=== PATIENT | female | born 2000 | race Caucasian/White ===

== ENCOUNTER 2021-03-26 17:46 | Emergency (ER) | payer OTHER, SELFPAY ==
[2021-03-26 18:08] VITALS: BP 129/87; PULSE 110; RESP 16; TEMP 37; O2SAT 100
[2021-03-26 18:31] LABS: Add Urine Microscopic? YES; Appearance Urine Clear (Clear); Bilirubin Urine Negative (Negative); Blood Urine 2+ (Negative); Color Urine Light Yellow (Yellow); Glucose Urine UA Negative (Negative); Ketones Urine Negative (Negative); Leukocyte Esterase Ur 1+ (Negative); Nitrate Urine Negative (Negative); Protein Urine 2+ (Negative); pH Urine 6.5 (5.0-8.0)
[2021-03-26 18:37] LABS: Bacteria Urine 1+ /hpf; Mucus Urine Few /lpf; RBC Urine 21-50 /hpf (0-2); Squamous Epithelial Cell Urine Rare /hpf (Few); WBC Urine 21-30 /hpf (0-3)
--- NOTE | 2021-03-26 18:41 | ED.FEMALEGU ---
HPI - Female Genitourinary General Chief complaint: Urogenital-Female Stated complaint: pelvic pressure Source: patient Mode of arrival: ambulatory Limitations: no limitations History of Present Illness HPI Narrative: This is a 20-year-old female that presents with some suprapubic fullness with some frequency and hesitancy with some some flank discomfort with no fever chills no nausea vomiting no diarrhea MD elicited complaint: dysuria Severity: mild Severity scale (1-10): 2 Urinary symptoms: Dysuria and Urgency Exacerbating factors: none Relieving factors: none Related Data Home Medications Medication Instructions Recorded Confirmed norelgestromin-ethin.estradiol 1 patch TOPICAL WEEKLY 03/26/21 03/26/21 [Xulane] Allergies Allergy/AdvReac Type Severity Reaction Status Date / Time No Known Allergies Allergy Verified 03/26/21 18:14 Review of Systems Review of Systems: All systems reviewed & are unremarkable except as noted in HPI and below PMFSH Past Medical History Medical History Patient denies medical problems Exam Const: General: no acute distress and alert Orientation/consciousness: patient oriented x3 HENMT: Head: normal to inspection Eyes: Conjunctivae: conjunctivae normal Pupils: Equal, round and reactive pupils present EOM: EOMs intact bilaterally Direct Ophthalmoscopy: no photophobia Neck: Neck: normal visual inspection, no lymphadenopathy and no meningeal signs Chest: Chest palpation & inspection: normal inspection of the chest Resp: Effort & Inspection: normal respiratory effort Auscultation: clear to auscultation bilaterally Cardio: Rate: regular rate Rhythm: regular rhythm GI: GI Palp: Yes Soft to palpation Percussion: Yes normal to percussion Neuro: General: patient oriented x3 Extrem: General: normal to inspection and no pedal edema Psych: Mental Status: mental status grossly normal Course Course Emergency Course: patient has a urinary tract infection will give a dose of Macrobid and is to follow-up with primary care physician if symptoms persist or worsen. Vital Signs Vital signs: Vital Signs Temperature 37.0 C 03/26/21 18:08 Pulse Rate 110 H 03/26/21 18:08 Respiratory Rate 16 03/26/21 18:08 Blood Pressure 129/87 03/26/21 18:08 Pulse Oximetry 100 03/26/21 18:08 Temperature 37.0 C 03/26/21 18:08 Pulse Rate 110 H 03/26/21 18:08 Respiratory Rate 16 03/26/21 18:08 Blood Pressure 129/87 03/26/21 18:08 Pulse Oximetry 100 03/26/21 18:08 MDM - Female Genitourinary Lab Data Labs: Lab Results 03/26/21 Range/Units 18:29 Urine Color Light yellow (Yellow) Urine Appearance Clear (Clear) Urine pH 6.5 (5.0-8.0) Ur Specific [place] 1.020 (1.010-1.020) Urine Protein 2+ H (Negative) Urine Glucose (UA) Negative (Negative) Urine Ketones Negative (Negative) Ur Blood (Man) 2+ H (Negative) Urine Nitrate Negative (Negative) Urine Bilirubin Negative (Negative) Urine Urobilinogen 4.0 H (0.2-1.0) mg/dL Ur Leukocyte Esterase 1+ H (Negative) Urine RBC 21-50 H (0-2) /hpf Urine WBC 21-30 H (0-3) /hpf Ur Squamous Epith Cells Rare (Few) /hpf Urine Bacteria 1+ H (None) /hpf Urine Mucus Few H /lpf Critical Care Time Critical Care Time Critical Care Time: No Discharge Plan Discharge Clinical Impression: Urinary tract infection Qualifiers: Urinary tract infection type: acute cystitis Hematuria presence: without hematuria Qualified Code(s): N30.00 - Acute cystitis without hematuria Patient Disposition: Home, Self-Care Condition: Stable Instructions: Antibiotic Form, Urinary Tract Infection in Women (ED) Additional Instructions: Take medicine as prescribed and follow-up with primary care physician. Prescriptions: New nitrofurantoin monohyd/m-cryst [Macrobid] 100 mg capsule 100 mg PO Q12H 7 Days Qt
[2021-03-26] MEDS: NITROFURANTOIN MONOHYD MACROCR 100 MG CAP PO (18:49)
== END 2021-03-26 18:58 | disposition home or self-care (01) ==
PROVIDERS: Emergency Provider Emergency Medicine; PCP Physician Assistant
DX: N30.00 Acute cystitis without hematuria (principal)
CPT/HCPCS: 81001; 99283; A9270

== ENCOUNTER 2021-03-28 22:28 | Emergency (ER) | payer OTHER, SELFPAY ==
--- NOTE | 2021-03-28 23:16 | ED.BACK ---
HPI - Back Pain/Injury General Stated Complaint: back pain Source: patient Mode of arrival: ambulatory Limitations: no limitations History of Present Illness HPI Narrative: this is a 20-year-old female that presents with right lower back pain radiating down her right leg pain listed with movement of her right leg and moved of her back it is at the L4 right paravertebral area and tender with palpation with no numbness or tingling no known injury. Patient does state that she has had new job that has her doing some lifting. Currently no dysuria no hematuria no diarrhea or constipation. Patient was in our emergency department approximately 2 to 3 days ago and treated for urinary tract infection. MD elicited complaint: back pain Pertinent past history: recent trauma Onset (ago): day(s) Timing: intermittent Severity: moderate Pain scale (0-10): 6 Related Data Home Medications Medication Instructions Recorded Confirmed norelgestromin-ethin.estradiol 1 patch TOPICAL WEEKLY 03/26/21 03/26/21 [Xulane] Allergies Allergy/AdvReac Type Severity Reaction Status Date / Time No Known Allergies Allergy Verified 03/28/21 23:21 Review of Systems Review of Systems: All systems reviewed & are unremarkable except as noted in HPI and below PMFSH Past Medical History Medical History Patient denies medical problems Exam Const: General: no acute distress and alert Orientation/consciousness: patient oriented x3 HENMT: Head: normal to inspection Eyes: Conjunctivae: conjunctivae normal Pupils: Equal, round and reactive pupils present EOM: EOMs intact bilaterally Resp: Effort & Inspection: normal respiratory effort Cardio: Rate: regular rate Rhythm: regular rhythm : General: Yes no CVA tenderness Urinary Catheter: Urinary Catheter: patent and draining Skin: Rashes: no rashes Neuro: General: patient oriented x3 and moves all extremities Extrem: Other: L4 right paravertebral tenderness with palpation with a positive straight leg raising test on the right Psych: Mental Status: mental status grossly normal Affect: normal affect Attitude: cooperative Course Course Emergency Course: patient received 60mg IM Toradol Critical Care Time Critical Care Time Critical Care Time: No Discharge Plan Discharge Clinical Impression: Sciatica Qualifiers: Laterality: right Qualified Code(s): M54.31 - Sciatica, right side Patient Disposition: Home, Self-Care Condition: Stable Instructions: Antibiotic Form, Sciatica (ED) Additional Instructions: take medicine as prescribed and follow-up with some your care provider for further evaluation and treatment. Prescriptions: New tramadol [Ultram] 50 mg tablet 50 mg PO Q6H PRN (Reason: pain) Qty: 14 RF: 0 cyclobenzaprine 5 mg tablet 5 mg PO TID Qty: 20 RF: 0 No Action Xulane 150-35 mcg/24 hr patch weekly 1 patch topical WEEKLY RF: 0 nitrofurantoin monohyd/m-cryst [Macrobid] 100 mg capsule 100 mg PO Q12H 7 Days Qty: 14 RF: 0 Follow-up/Referrals: Asim,KIP Vincent [Primary Care Provider] - Time of Disposition: 23:22
[2021-03-28 23:17] VITALS: BP 129/71; PULSE 71; RESP 20; TEMP 36.8; O2SAT 100
[2021-03-28] MEDS: KETOROLAC (*BKC) 60 MG/2 ML VIAL IM (23:20)
[2021-03-28 23:22] VITALS: BP 129/71; PULSE 71; RESP 20; TEMP 36.8; O2SAT 98
--- NOTE | 2021-03-28 23:28 | PC.NURSE ---
pt rates pain 5/10 prior to discharge
== END 2021-03-28 23:26 | disposition home or self-care (01) ==
PROVIDERS: Emergency Provider Emergency Medicine; PCP Physician Assistant
DX: M54.41 Lumbago with sciatica, right side (principal)
CPT/HCPCS: 96372; 99283; J1885